=== PATIENT | male | born 1985 | race Caucasian/White ===

== ENCOUNTER 2025-01-25 12:48 | Emergency (ER) | payer BC, SELFPAY ==
[2025-01-25 12:59] VITALS: BP 142/82; PULSE 80; RESP 18; TEMP 36.4; O2SAT 97
--- NOTE | 2025-01-25 13:03 | ED_ITS ---
HPI - Chest Pain General Chief Complaint: Chest Pain Stated Complaint: Right Side Chest Pain Time Seen by Provider: 01/25/25 13:00 Source: patient, family, RN notes reviewed and old records reviewed Mode of arrival: ambulatory Limitations: no limitations History of Present Illness HPI narrative: 39 year old male presents to express care with complaints of right upper chest pain since 1600 yesterday described as tightness rates pain 06/20, states some increased discomfort when moves his right shoulder. Patient reports today pain has continued and he works for [employer] [facility] [employer] and also felt nausea this morning so the survival flight came to the [employer] and did an EKG and stated for him to follow up with his doctor. Patient has history of diabetes with fingerstick done on arrival to clinic with reading 118. Patient reports that he has been in remission from AML for 3 years did have chemotherapy. Patient has pale color, denies feeling short of breath or increased pain with deep breathing. Patient reports had right shoulder surgery last year and was cleared by his orthopedic in November, denies any recent injury to right shoulder. MD complaint: chest pain (right sided chest pain, nausea this morning with pain, no injury) Related Data Home Medications ?Medication ?Instructions ?Recorded ?Confirmed ?Last Taken ?Type allopurinol 300 mg tablet mg 01/25/25 Unknown History buspirone 15 mg tablet mg 01/25/25 Unknown History rosuvastatin 5 mg tablet mg 01/25/25 Unknown History tirzepatide 5 mg/0.5 mL mg subcut 01/25/25 Unknown History subcutaneous pen injector (Mounjaro) Allergies Allergy/AdvReac Type Severity Reaction Status Date / Time Penicillins Allergy Intermediate Unknown Verified 01/25/25 13:10 Sulfa (Sulfonamide Allergy Intermediate rash Verified 01/25/25 13:10 Antibiotics) Review of Systems Review of Systems: CONSTITUTIONAL: Denies fever, chills, or sweats. EYES: Denies visual changes, redness, or discharge. ENT: Denies rhinorrhea, congestion, sore throat, or otalgia. CARDIOVASCULAR: Reports right sided chest pain denies any palpitations, or edema. RESPIRATORY: Denies cough or dyspnea. GASTROINTESTINAL: Denies abdominal pain, positive for nausea this morning with pain, no vomiting, or diarrhea. GENITOURINARY: Denies dysuria or hematuria. SKIN: Denies rash or itching. MUSCULOSKELETAL: Denies back pain, joint pain, or myalgia. NEUROLOGIC: Denies headache, numbness, or weakness. PSYCHIATRIC: Positive for history of anxiety or depression. All systems reviewed & are unremarkable except as noted in HPI and below PMFSH Past Medical History Medical History (Updated 01/25/25 @ 18:38 by Nyla Collazo NP) AML (acute myeloid leukemia) in remission 3 yrs remission did have chemotherapy Hypertension Diabetes Surgical History Surgical History (Updated 01/25/25 @ 17:56 by Nyla Collazo NP) History of arthroscopy of right shoulder Social History Social History (Updated 01/25/25 @ 17:58 by Nyla Collazo NP) Smoking status: Never smoker Alcohol intake: current Alcohol use details: rare Substance use type: does not use Living arrangements: with family Gender identity (if verbalized by the patient): Male Comments At time of signature, agree with nursing past medical, surgical, social and family history. There is no relevant family history pertinent to the presenting complaint Exam Narrative: GENERAL: Well-appearing, well-nourished, color pale and in no present acute distress.appears anxious HEAD: Normocephalic, atraumatic. EYES: PERRLA and EOMI. ENT: Nares clear, no rhinorrhea or epistaxis. Mucous membranes moist. TM;s normal throat pink with no swelling NECK: Supple.no lymphadenopathy CHEST: Clear to auscultation. No respiratory distress. denies any cough or any URI symptoms or any feelings of dyspnea SAO2 97% on room air HEART: Regular rate and rhythm. No murmur heard. Normal peripheral pulses. ABDOMEN: Soft, nontender, nondistended, normal active bowel sounds. EXTREMITIES: Normal range of motion. No edema. SKIN: Warm, dry, no rash. NEURO: No focal deficits. Alert and oriented x3. Course Course Emergency Course: Patient is aware of diagnosis, understands and agrees to treatment plan.? Anticipatory guidance given.? Patient agrees to follow-up as directed and is aware of reasons to seek care at the emergency department. Portions of this record may have been created with voice recognition software Level of Care: Express Care Visit Vital Signs Vital signs: Vital Signs Temperature 36.4 C 01/25/25 12:59 Pulse Rate 80 01/25/25 12:59 Respiratory Rate 18 01/25/25 12:59 Blood Pressure 142/82 H 01/25/25 12:59 Pulse Oximetry 97 01/25/25 12:59 Oxygen Delivery Room Air 01/25/25 12:59 Temperature 36.4 C 01/25/25 12:59 Pulse Rate 80 01/25/25 12:59 Respiratory Rate 18 01/25/25 12:59 Blood Pressure 142/82 H 01/25/25 12:59 Pulse Oximetry 97 01/25/25 12:59 Oxygen Delivery Room Air 01/25/25 12:59 Reviewed Transfer Transfered to: [facility] Transportation: Other (per private car with refuses ambulance transfer AMA paper signed against ambulance transfer) Transfer rationale: Patient has had ongoing right mid upper chest pain since 4 pm yesterday states increased pain with movement of right shoulder, states nausea this morning with pain, no present nausea reported, Patient is diabetic on Mounjaro, has history of AML has been in remission 3 years did take chemotherapy Accepting physician: Dr Gallegos Transfer comments: To [facility] per private car with for further evaluation MDM - Chest Pain MDM Narrative Medical decision making narrative: 1325 Call placed to [facility] ED with condition update, PMH, VS, reviewed with Bill RN with Dr Gallegos accepting patient for transfer. Differential Diagnosis Differential diagnosis: Likely atypical chest pain, costochondritis and chest pain Medical Records Data Attestation: I reviewed the patient's medical records. Lab Data Attestation: I reviewed the patient's lab results. Lab results narrative: glucose 118 Labs: Lab Results 01/25/25 Range/Units 13:04 POC Capillary Glucose 118 H (65-105) mg/dl reviewed ECG Data EKG #1: Attestation: I personally reviewed and interpreted this ECG as follows: ECG completion date: 01/25/25 ECG completion time: 13:06 Prior ECG tracings: not available for review Ischemic changes: other (flipped t waves) Interpretation: sinus rhythm rate 69 bpm, WA 135ms QRS 104ms,QT 398ms EKG Interpretation: sinus rhythm Critical Care Time Critical Care Time Critical Care Time: No Discharge Plan Discharge Clinical Impression: Atypical chest pain Patient Disposition: Acute Care Hospital Condition: Stable Patient Language: Bangladeshi Prescriptions: No Action allopurinol 300 mg tablet buspirone 15 mg tablet rosuvastatin 5 mg tablet Mounjaro 5 mg/0.5 mL pen injector SUBCUT Follow-up/Referrals: UNKNOWN,DOCTOR [Primary Care Provider] Time of Disposition: 13:30 Quality Abbie Coma Scale Eyes: Open Verbal: Oriented and Alert Motor: Follows Commands [place] Coma Total Score: 15
--- NOTE | 2025-01-25 13:05 | ECG_ITS ---
Test Date: 2025-01-25 13:06:40 Measurements Intervals Reese Rate: 69 P: 20 VT: 135 QRS: 21 QRSD: 104 T: 28 QT: 398 QTc: 428 Interpretive Statements SINUS RHYTHM BASELINE ARTIFACT- I, II, III, AVL, AVF NORMAL ECG No previous ECG available for comparison Electronically Signed On 01-25-2025 14:15:48 CDT by Wilmer Carroll D.O.
[2025-01-25] MEDS: ASPIRIN 81 MG CHEWABLE TABLET 324 MG PO (13:36)
--- OUTSIDE RECORDS SUMMARY | 2025-01-25 13:53 | XMS_ITS | Encounter Summary ---
Author Organization [facility] Healthcare Address [address] [place] [address] Care Team Providers Care Cup Machine Operator Name Role Phone Lu Ram NP Primary Care Provider [phone] Reason for Visit * Reason Comments Chest Pain Encounter Details Date Type Department Care Team (Late st Contact Info) Description 01/25/2025 1:53 PM CDT Emergency [facility] Emergency Department [address] [place] [address] Social History Tobacco Use Types Packs/Day Years Used Date Smoking Tobacco: Former Cigarettes 0.3 3.3 Cigars Smokeless Tobacco: Never Alcohol Use Standard Drinks/Week Comments Yes 0 (1 standard drink = 0.6 oz pure alcohol) recovering alcoholic quit Apr 2016 AUDIT-C Answer Date Recorded Q1: How often do you have a drink containing alcohol? Never 08/16/2024 Q2: How many drinks containi ng alcohol do you have on a typical day when you are drinking? Patient does not drink Q3: How often do you have si x or more drinks on one occasion? Never 08/16/2024 PHQ-2 Answer Date Recorded PHQ-2 Total Score (If total score is 3 or more points, staff should administer the PHQ-9) 0 08/10/2024 Personal Safety Answer Date Recorded Have you ever been in or are you currently in a harmful physical or emotional relationship or is someone making you feel afraid or unsafe? Denies 01/11/2024 Sex and Gender Information Value Date Recorded Sex Assigned at Not on file Legal Sex Male 6:25 PM [employer] Gender Identity Not on file Sexual Orientation Not on file documented as of this encounter Last Filed Vital Signs Vital Sign Reading Time Taken Comments Blood Pressure 137/75 01/25/2025 2:05 PM CDT Pulse 75 01/25/2025 2:05 PM CDT Temperature 36.8 C (98.2 F) 01/25/2025 2:05 PM CDT Respiratory Rate 18 01/25/2025 2:05 PM CDT Oxygen Saturation 95% 01/25/2025 2:05 PM CDT Inhaled Oxygen Concentration - - Weight 127 kg (280 lb) 01/25/2025 2:02 PM CDT Height 177.8 cm (5' 10) 01/25/2025 2:02 PM CDT Body Mass Index 40.18 01/25/2025 2:02 PM CDT documented in this encounter ED Notes * Cheryl Doshi RN - 01/25/2025 2:01 PM CDT Pt presents to ER with c/o right sided chest pain. Reports pain is constant and tight. States pain worsens with use of right arm. Denies cardiac hx. documented in this encounter Plan of Treatment Pending Results Name Type Priority Associated Diagnoses Date /Time Comprehensive metabolic panel Lab STAT 01/25/2025 2:12 PM CDT Troponin T high-sensitivity series (baseline, 2hr, 4hr, 6hr) Lab STAT 01/25/2025 2:12 PM CDT XR Chest PA Lateral 2 Views (If patient hemodynamically stable and ambulatory) Imaging ED 2:20 PM CDT Scheduled Orders Name Type Priority Associated Diagnoses Order Schedule Comprehensive metabolic panel Lab STAT STAT for 1 Occurrences starting 01/25/2025 until 01/25/2025 Troponin T high-sensitivity series (baseline, 2hr, 4hr, 6hr) Lab STAT STAT for 1 Occurrences starting 01/25/2025 until 01/25/2025 Oxygen Therapy - Nasal Cannula; 2 L/min Respiratory Care STAT For RT frequen cy use only for continuous procedures with task-based reminders at 8a and 8p until discontinued starting 01/25/2025 XR Chest PA Lateral 2 Views (If patient hemodynamically stable and ambulatory) Imaging ED Once for 1 Occurrences starting 01/25/2025 until 01/25/2025 Troponin T high-sensitivity 2-hour Lab Timed Once for 1 Occurrences starting 01/25/2025 until 01/25/2025 Troponin T high-sensitivity 4-hour Lab Timed Once for 1 Occurrences starting 01/25/2025 until 01/25/2025 Troponin T high-sensitivity 6-hour Lab Timed Once for 1 Occurrences starting 01/25/2025 until 01/25/2025 documented as of this encounter Procedures Procedure Name Priority Date/Time Associated Diagnosis Comments DIFFERENTIAL AUTO STAT 01/25/2025 2:1 2 PM CDT CBC WITH AUTO DIFFERENTIAL STAT 01/25/2025 2:12 PM CDT documented in this encounter Results * Differential, auto (01/25/2025 2:12 PM CDT) Neutrophil abs 5.47 1.50 - 6.50 K/cumm Imm gran abs 0.05 0.00 - 0.10 K/cumm [facility]) Lymphocyte abs 2.01 0.80 - 3.30 K/cumm [facility]) Monocyte abs 0.47 0.20 - 0.80 K/cumm [facility]) Eosinophil abs 0.36 0.00 - 0.50 K/cumm [facility]) Basophil abs 0.04 0.00 - 0.10 K/cumm [facility]) Neutrophil pct 65.1 % [facility] Comment: Interpretive Data Percent cell count reference ranges are not reported, since discordance with absolute values may lead to misinterpretation of CBC data. Current Interpretive Data was last revised on 2017. Imm gran pct 0.6 % [facility] Comment: Interpretive Data Percent cell count reference ranges are not reported, since discordance with absolute values may lead to misinterpretation of CBC data. Current Interpretive Data was last revised on 2017. Lymphocyte pct 23.9 % [facility] Comment: Interpretive Data Percent cell count reference ranges are not reported, since discordance with absolute values may lead to misinterpretation of CBC data. Current Interpretive Data was last revised on 2017. Monocyte pct 5.6 % [facility]) Comment: Interpretive Data Percent cell count reference ranges are not reported, since discordance with absolute values may lead to misinterpretation of CBC data. Current Interpretive Data was last revised on 2017. Eosinophil pct 4.3 % [facility] Comment: Interpretive Data Percent cell count reference ranges are not reported, since discordance with absolute values may lead to misinterpretation of CBC data. Current Interpretive Data was last revised on 2017. Basophil pct 0.5 % [facility] Comment: Interpretive Data Percent cell count reference ranges are not reported, since discordance with absolute values may lead to misinterpretation of CBC data. Current Interpretive Data was last revised on 2017. Blood 01/25/2025 2:12 PM CDT 01/25/2025 2:15 PM CDT us Toro Gallegos MD LAB BLOOD ORDERABLES Final R esult [facility] ([place]) 1 [facility] Department [place] [address] * (ABNORMAL) CBC with auto differential (01/25/2025 2:12 PM CDT) WBC 8.40 3.80 - 9.90 K/cumm Hgb 14.3 13.0 - 17.5 g/dL [facility]) Hct 39.2 38.9 - 50.3 % [facility] ([place]) Plt 149(L) 150 - 400 K/cumm [facility]) MPV 9.6 9.1 - 12.3 fL [facility]) RBC 4.48 4.30 - 5.80 M/cumm [facility]) MCV 87.5 81.3 - 96.4 fL [facility] MCH 31.9 27.1 - 33.3 pg [facility] MCHC 36.5(H) 32.3 - 35.7 g/dL [facility] RDW CV 12.4 11.1 - 14.9 % [facility] RDW SD 39.4 35.7 - 48.1 fL [facility] NRBC abs 0.00 0.00 - 0.01 K/cumm [facility] ([place]) Blood Venous blood specimen / Unknown 01/25/2025 2:12 PM CDT 01/25/2025 2:15 PM CDT Toro Galleogs MD LAB BLOOD ORDERABLES Final R esult [facility] ([place]) 1 [facility] Department [place] [address] documented in this encounter Visit Diagnoses Not on filedocumented in this encounter Orders Medications Ordered That Brooks ht Not Have Been Administered Count Last Ordered Date First Ordered Date aspirin chewable tablet 324 mg 1 01/25/2025 EKG Orders Without Results Count Last Ordered D ate First Ordered Date ECG 12-LEAD 1 01/25/2025 Nursing Count Last Ordered Date First Orde red Date CARDIO RESPIRATORY MONITORING 1 01/25/2025 CONTINUOUS PULSE OXIMETRY 1 01/25/2025 MISCELLANEOUS NURSING CARE ORDER (SPECIFY) 1 01/25/2025 IV Count Last Ordered Date First Orde red Date SALINE LOCK IV 1 01/25/2025 documented in this encounter Care Teams Cup Machine Operator Relationship Specialty Start Date End Date Lu Ram NP PCP - General Family Medicine 07/21/23 documented as of this encounter
--- OUTSIDE RECORDS SUMMARY | 2025-01-25 14:33 | XMS_ITS | Clinical Summary ---
Author Organization [facility] [address] [place] [address] [place] [id number] Care Team Providers Care Charter Coach Driver Name Role Phone Lu Ram NP Primary Care Provider [phone] Allergies Active Allergy Reactions Criticality Noted Date Comments Penicillins Unknown Sulfa (Sulfonamide Antibiotics) Other (See comments) Low 02/06/2011 Since a child Medications busPIRone (BUSPAR) 15 mg tabletIndications:S ituational anxiety TAKE 1 TABLET(15 MG) BY MOUTH DAILY 90 tablet [address] (VOLTAREN) 75 mg EC tablet 5 Active rosuvastatin (CRESTOR) 5 mg tabletIndications:M ixed hyperlipidemia TAKE 1 TABLET(5 MG) BY MOUTH DAILY 90 tablet 5 Active tirzepatide (Mounjaro) 10 mg/0.5 mL pen injector injectionIndication s:Type 2 diabetes mellitus without complication, without long-term current use of insulin (HCC) Inject 0.5 mL (10 mg total) under the skin every 7 days 2 mL 1 5 Active allopurinoL (ZYLOPRIM) 300 mg tablet Take 1 tablet (300 mg total) by mouth daily 5 Active Active Problems Problem Noted Date Diagnosed Date Right shoulder pain 12/02/2024 Pre-op examination 01/05/2024 Impingement syndrome of right shoulder 4 Arthritis of right acromioclavicular joint 12/23 Biceps tendonitis on right 12/24/2023 Mixed hyperlipidemia 08/24/2023 Situational anxiety 08/24/2023 Type 2 diabetes mellitus wit hout complication, without long-term current use of insulin 08/09/2021 Hypokalemia 08/09/2021 Pancytopenia 08/09/2021 Avulsion fracture of navicul ar bone of foot, right, closed, initial encounter 05/19/2021 Right foot sprain, initial encounter 05/19/2021 Acute myeloid leukemia in remission 03/11/2021 Complex regional pain syndrome 08/20/2015 Overview (07/17/2016): Complex regional pain syndrome Chronic sinusitis 08/20/2015 Overview (07/17/2016): Chronic sinusitis Resolved Problems Problem Noted Date Diagnosed Date Resolved Date Morbid obesity with BMI of 40.0-44.9, adult 07/23/2023 01/05/2024 Generalized anxiety disorder 07/23/2023 08/24/2023 Adiposity 08/20/2015 07/23/2023 Overview (07/16/2016): Obesity Encounters Date Type Department Care Team Description 01/25/2025 1:53 PM CDT Emergency [facility] Emergency Department [address] [place] [address] 12/13/2024 Telephone [facility] Family [facility] [address] [place] [address] Lu Ram NP 12/02/2024 8:45 AM CDT Office Visit [facility] Orthopedic and Sports Medicine [address] [place] [phone] Edmundo Ji MD Right shoulder pain, unspecified chronicity (Primary Dx) 12/02/2024 Orders Only [facility] Orthopedic [facility] Sports Medicine [address] [place] [phone] Edmundo Ji MD from Last 3 Months Immunizations Immunization Administration Dates Next Due H1N1 Inj 03/28/2009 Hep A / Hep B 03/02/2006, 6,10/26/2005,09/22 IPV 09/22/2005 Influenza LAIV (Nasal) 01/12/2024(Deferr ed: Patient Refused),01/27/2006 Influenza, Quadrivalent, Spl it, Intramuscular 01/12/2009,08/07/2008 Influenza, Unspecified 01/11/2023(Deferr ed: Patient Refused),07/09/2007 MMR 09/22/2005 Meningococcal Polysaccharide (Menomune) 09/22/2005 PPD TEST 03/23/2009, 9,08/07/2008,03/02 Pfizer SARS-CoV-2 Monovalent Vaccination (12+ Yrs) PURPLE 07/23/2020,07/02/2020 Td, adsorbed 09/22/2005 Tdap 08/19/2016,04/13/2005 Typhoid H-P SQ/ID 10/27/2005 Typhoid Inactivated 10/27/2005 Yellow Fever 10/27/2005 Surgical History Surgery Date Site/Laterality Comments SINUS SURGERY sinus surgery PORT PLACEMENT CHEST >5 YEARS 04/04/2021 N/A PORT REMOVAL VASECTOMY Medical History Medical History Date Comments Hx Other Medical 04/2008 regional sympat rotic pain disorder; Comments: CLS 08/20/2015 - Myeloid leukemia in remission ma y 2021 Sleep apnea PONV (postoperative nausea a nd vomiting) HLD (hyperlipidemia) Chronic sinusitis Type 2 diabetes mellitus Depression Anxiety Arthritis Family History Medical History Relation Name Comments Cancer Father's Brother Abdulkadir Arthritis Mother Zaina Arthritis; Diabetes Mother Zaina Diabetes mellit us; Hypertension Mother Zaina Hypertension; Obesity Mother Zaina Cancer Paternal Grandfather Toro Cancer Paternal Grandmother Azra Relation Name Status Comments Father's Brother Abdulkadir Mother Zaina (Age 54) Paternal Grandfather Toro Paternal Grandmother Azra Social History Tobacco Use Types Packs/Day Years Used Date Smoking Tobacco: Former Cigarettes 0.3 3.3 Cigars Smokeless Tobacco: Never Tobacco Cessation:Counseling Given: Not Answered Alcohol Use Standard Drinks/Week Comments Yes 0 [...] on file Legal Sex Male 6:25 PM [employer]PLIANCE [employer]OC[employer] Gender Identity Not on file Sexual Orientation Not on file Obstetrics History Last Filed Vital Signs Vital Sign Reading [...] Mass Index 40.18 01/25/2025 2:02 PM CDT Plan of Treatment Health Maintenance Due Date Last Done Comments Foot Exam 1984 Pneumococcal vaccine <65 (1 of 2 - PCV) 01/30/2003 Zoster Vaccine (1 of 2) 01/30/2003 Varicella Vaccines (1 of 2 - 13+ 2-dose series) 02/24/2006 HPV Vaccines (1 - 3-dose SCD M series) 01/30/2011 Dilated Eye Exam 10/09/2024 10/10/2023 Covid-19 Vaccine (4 - 2024-2 6 season) 2024 05/14/2022, 07/23/2020, 07/02/2020 Influenza Vaccine (#1) 2024 9, 08/07/2008, 07/09/2007, Additional history exists Hemoglobin A1C 02/13/2025 08/13/2024, 11/0 08/2023, 10/24/2023, Additional history exists Depression Screening 08/10/2025 08/10/2024, 07/23/19 Albumin Creatinine Ratio, Urine 08/13/2025 , 08/01/2023 Lipid Panel 08/13/2025 08/13/2024, 07/1 06/2023, 08/01/2023 eGFR 08/13/2025 08/13/2024, 11/0 08/2023, 10/24/2023, Additional history exists Regular Well Visit/Exam 18-64 08/17/2025 08/17/2024 DTaP/Tdap/Td Vaccine (4 - Td or Tdap) 08/19/2026 08/19/2016, 09/22/2005, 04/13/2005 Hepatitis B Screening Completed 03/02/2006 , 10/27/2005, 10/26/2005, Additional history exists Hepatitis C Screening Completed 08/29/2023, 024 Procedures Procedure Name Priority Date/Time Associated Diagnosis Comments DIFFERENTIAL AUTO STAT 01/25/2025 2:1 2 PM CDT CBC WITH AUTO DIFFERENTIAL STAT 01/25/2025 2:12 PM CDT EGFR Routine 08/13/2024 7:18 AM CDT Morbid obesity with BMI of 40.0-44.9, adult (HCC) Type 2 diabetes mellitus without complication, without long-term current use of insulin (HCC) Mixed hyperlipidemia Annual physical exam HEMOGLOBIN A1C Routine 08/13/2024 7:18 AM CDT Type 2 diabetes mellitus without complication, without long-term current use of insulin (HCC) LIPID PANEL Routine 08/13/2024 7:18 AM CDT Mixed hyperlipidemia Annual physical exam ALBUMIN CREATININE RATIO, URINE Routine 08/13/2024 7:18 AM CDT Type 2 diabetes mellitus without complication, without long-term current use of insulin (HCC) DIABETIC EYE EXAM Routine 10/10/2023 HEPATITIS PANEL, ACUTE Routine 08/29/2023 7:28 AM CDT Elevated LFTs from Last 3 Months or Most Recently Relevant to Health Maintenance Results * Differential, auto (01/25/2025 2:12 PM [...] PM CDT 01/25/2025 2:15 PM CDT Toro Gallegos MD LAB BLOOD ORDERABLES Final R esult [facility] ([facility]) [facility] [address] * (ABNORMAL) CBC with auto differential (01/25/2025 [...] RDW SD 39.4 35.7 - 48.1 fL [facility] ([facility]) NRBC abs 0.00 0.00 - 0.01 K/cumm [facility] ([facility]) Blood Venous blood specimen / Unknown 01/25/2025 2:12 PM CDT 01/25/2025 2:15 PM CDT Toro Gallegos MD LAB BLOOD ORDERABLES Final R esult [facility] ([facility]) 1 [facility] [address] * eGFR (08/13/2024 7:18 AM CDT) eGFR >90 >=60 mL/min/1. 73 m2 Comment: Interpretive Data Reference Interval Normal >/= 90 mL/min/1.73m2 Mildly decreased* 60 - 89 mL/min/1.73m2 Mildly to moderately decreased 45 - 59 mL/min/1.73m2 Moderately to severely decreased 30 - 44 mL/min/1.73m2 Severely decreased 15 - 29 mL/min/1.73m2 Kidney Failure < 15 mL/min/1.73m2 *Relative to young adult level Estimated glomerular filtration rate is determined by the 2020 CKD-EPI equation recommended by the National Kidney Foundation (A Unifying Approach to GFR Estimation: Recommendations of the NKF-ASK Task Force on Reassessing the Inclusion of Race in Diagnosing Kidney Disease, JASN 2020). The CKD-EPI equation should not be used for patients with unstable renal function and has not been validated in children and those over 70. Current interpretive data was last reviewed 2021. Blood 08/13/2024 7:18 AM CDT 08/13/2024 7:29 AM CDT us Lu Ram NP LAB BLOOD ORDERABLES Final Res ult [facility] 1 [facility] [place] [address] * Albumin Creatinine Ratio, Urine (08/13/2024 7:18 AM CDT) Albumin Ur <12.0 mg/L Comment: Interpretive Data No reference range established. Current interpretive data was last revised 2018. Testing performed by: [facility], [address] [place] [address], [place]., [address] Creatinine Ur 149.0 mg/dL [facility] ([place]) Comment: Interpretive Data No reference range established. Current interpretive data was last revised 2018. Testing performed by: [facility], [address] [place] [address]., [address] Albumin Creatinine Ratio, Ur <8 1 - 29 mg/g [facility] ([place]) Comment:Testing performed by : [facility], [address] [place] [address], [place]., [address] Urine 08/13/2024 7:18 AM CDT 08/13/2024 1:05 PM CDT LuDBi Servicesson CEMENT BREAKER LAB URINE ORDERABLES Final Res ult Performing Organization Address [facility] de Phone Number [facility] ([place]) 1 [facility] [place] [address] * Hemoglobin A1c (08/13/2024 7:18 AM CDT) Hgb A1C 5.0 4.0 - 5.6 % Estimated Average Glucose 97 mg/dL [facility] ([place]) Comment: The ADA recommends reporting an estimated Average Glucose (eAG) with all Hemoglobin A1c results using the equation derived from a study of 507 normal and diabetic adults. Minority populations were underrepresented and children were not included. (Diabetes Care 31:9336-7657, 2008). The eAG is not equivalent to a fasting glucose. Blood 08/13/2024 7:18 AM CDT 08/13/2024 7:29 AM CDT Lu Yo CEMENT BREAKER LAB BLOOD ORDERABLES Final Res ult Performing Organization Address [facility] de Phone Number [facility] [address] [place] [id number] * (ABNORMAL) Lipid panel (08/13/2024 7:18 AM CDT) Cholesterol 235(H) 30 - 199 mg/dL Comment: Interpretive Data Ages < or = 19 years Acceptable: <170 mg/dL Borderline high: 170-199 mg/dL High: >or= 200 mg/dL Ages > or = 20 years Desirable: <200 mg/dL Borderline high: 200-239 mg/dL High: >or= 240 mg/dL Literature References: 1. Expert Panel on Integrated Guidelines for Cardiovascular Health and Risk Reduction in Children and Adolescents. Pediatrics 2011;128:S213 2. NCEP Expert Panel. Circulation 2004;110:227 Current Interpretive Data was last revised on 2017. Triglycerides 90 <=149 mg/dL [facility]) Comment: Interpretive Data Ages < or = 9 years Acceptable: <75 mg/dL Borderline high: 75-99 mg/dL High: >or= 100 mg/dL Ages 10 to 20 years Acceptable: <90 mg/dL Borderline high: 90-129 mg/dL High: >or= 130 mg/dL Ages > or = 20 years Desirable: <150 mg/dL Borderline high: 150-199 mg/dL High: 200-499 mg/dL Very high: >or= 499 mg/dL Literature References: 1. Expert Panel on Integrated Guidelines for Cardiovascular Health and Risk Reduction in Children and Adolescents. Pediatrics 2011;128:S213 2. NCEP Expert Panel. Circulation 2004;110:227 Current Interpretive Data was last revised on 2017. HDL 41 >=40 mg/dL [facility] ([place]) Comment: Interpretive Data Ages < or = 19 years Acceptable: >45 mg/dL Borderline low: 40-45 mg/dL Low: <40 mg/dL Ages > or = 20 years Desirable: >or= 60 mg/dL Low: <40 mg/dL Literature References: 1. Expert Panel on Integrated Guidelines for Cardiovascular Health and Risk Reduction in Children and Adolescents. Pediatrics 2011;128:S213 2. NCEP Expert Panel. Circulation 2004;110:227 Current Interpretive Data was last revised on 2017. LDL, calculated 178(H) <=129 mg/dL [facility] GALAVIZ) Comment: Interpretive Data Ages < or = 19 years Acceptable: <110 mg/dL Borderline high: 110-129 mg/dL High: >or= 130 mg/dL Ages > or = 20 years Optimal: <100 mg/dL Near optimal: 100-129 mg/dL Borderline high: 130-159 mg/dL High: >160 mg/dL Calculated using the Walter LDL-C estimating equation. This equation was implemented on 2023. Prior to this date LDL-C was estimated using the Friedewald equation. Literature References: 1. Expert Panel on Integrated Guidelines for Cardiovascular Health and Risk Reduction in Children and Adolescents. Pediatrics 2011;128:S213 2. NCEP Expert Panel. Circulation 2004;110:227 3. Jose Angel M et al. MINAL Cardiol. 2020 August 11;5(5):540-548. doi: 10.1001/[email or web address].2020.0013 Current Interpretive Data was last revised on 2023. Non-HDL Cholesterol 194 mg/dL [facility] ([place]) Comment: Interpretive Data Ages < or = 19 years Acceptable: <120 mg/dL Borderline high: 120-144 mg/dL High: >145 mg/dL Ages > or = 20 years When triglycerides are >200 mg/dL, Non-HDL cholesterol is a secondary target of therapy with treatment goals that are 30 mg/dL greater than the LDL cholesterol target. Literature References: 1. Expert Panel on Integrated Guidelines for Cardiovascular Health and Risk Reduction in Children and Adolescents. Pediatrics 2011;128:S213 2. NCEP Expert Panel. Circulation 2004;110:227 Current Interpretive Data was last revised on 2017. Chol/HDL ratio 6 MELANE R [facility] ([facility]Y) Blood 08/13/2024 7:18 AM CDT 08/13/2024 7:29 AM CDT Lu Ram NP LAB BLOOD ORDERABLES Final Res ult [facility] ([place]) 1 [facility] Department of Laboratories [place], [place] [id number] * Diabetic Eye Exam (10/10/2023) Historical Provider HEALTH MAINTENANCE Final Result * Hepatitis panel, acute Blood (08/29/2023 7:28 AM CDT) Hep A IgM Nonreactive Nonreactive Comment: Interpretive Data: If Hep A IgM Ab is reported as Equivocal, a new sample should be drawn in two weeks for testing. Current interpretive data was last revised on 19. Testing performed by: [facility], [address] [place] [address], [place]., [address] Hep B core IgM Nonreactive Nonreactive Tu [facility] ([facility]Y) Comment: Interpretive Data If HepB Core IgM Ab is reported as Equivocal, a new sample should be drawn in two weeks for testing. Current interpretive data was last revised on 19. Testing performed by: [facility], [address] [place] [address]., [address] Hep C Ab Nonreactive Nonreactive [facility] ([place]) Comment: Interpretive Data Nonreactive: Antibodies to HCV not detected. Does NOT exclude the possibility of recent exposure to HCV. Equivocal: Equivocal for HCV antibodies. Supplemental molecular testing will be automatically performed to determine infection status in accordance with current CDC screening recommendations. Reactive: Positive for HCV antibodies. This may represent current or past HCV infection. Supplemental molecular testing will be automatically performed to determine current infection status in accordance with current CDC screening recommendations. Interpretive data was last revised on 2019. Testing performed by: [facility], [address] [place] [address]., [address] HepBsAg Nonreactive Nonreactive [facility] ([place]) Comment:Testing performed by : [address] [address] Blood 08/29/2023 7:28 AM CDT 08/29/2023 12:05 PM CDT us Lu Ram NP LAB MICROBIOLOGY - GENERAL ORD ERABLES Final Result [facility] ([place]) 1 [facility] Department [place] [address] from Last 3 Months or Most Recently Relevant to Health Maintenance Insurance [facility] CHOICE PLUS [facility] HMO/PPO Address: [address] [address] [place] [address] [facility] OPEN ACCESS [facility] [place] [facility] [place] Care Teams Charter Coach Driver Relationship Specialty Start Date End Date Lu Ram NP PCP - General Family Medicine 07/21/23
--- OUTSIDE RECORDS SUMMARY | 2025-01-25 14:41 | XMS_ITS ---
Author Organization [facility] Address [address] [facility] [place] [address] Care Team Providers Care Materials Engineer Name Role Phone Neil Guy MD Unavailable [phone] Sha Aguirre MD Unavailable Pearl Tillman FOLDING MACHINE TENDER-DEVOPS ARCHITECT Unavailable [phone] Lu Ram FOLDING MACHINE TENDER-RAIL BONDER Primary Care Provider Active Problems Problem Noted Date Diagnosed Date Septic shock 08/09/2021 DMII (diabetes mellitus, type 2) 08/09/2021 Pancytopenia 08/09/2021 Hypokalemia 08/09/2021 Bacteremia 08/09/2021 Other specified anemias 08/09/2021 headache, unclear etiology 08/09/2021 Dental abscess 05/05/2021 Acute myeloid leukemia s/p induction 04/11/2021 Acute myeloid leukemia not having achieved remis tramaine 03/11/2021 Chronic sinusitis Current Treatment and Therapy Plans IP AML CONSOLIDATION - AGE <60 (HIGH DOSE CYTARABINE)(RANGEL HIDAC)* Plan Start Date:03/25/2021 Plan Provider:Faina Oreilly MD Linked Problems Acute myeloid leukemia not h aving achieved remission (HCC) Treatment Medications cytarabine (Cytosar)cytarabine (Cytosar) Infusio n Past Treatment and Therapy Plans ONCOLOGY TREATMENT Plan Name Start Date Discontinue Date Treatment Medications Discontinue Reason Plan Provider Cycles IP AML INDUCTION (IDARUBICIN CYTARABINE) (7+3) 03/14/20 21 04/17/2021 cytarabine (Cytosar) InfusionIDArubicin (Idamycin)rasburicas e (Elitek) custom in 50 mL bolus Therapy Complete hSa Aguirre MD 1 of 1 cycle completed Lifetime Dose Tracking * Chemical Lifetime Dose Automatic Entry Manual Entr y Idarubicin 35.904 mg/m2 (90 mg) 35.904 mg/m2 (90 mg) 0 mg/m2 (0 mg) Dose Length Product 5,928.3 mGy-cm 5,928.3 mGy-cm 0 mG y-cm Resolved Problems Problem Noted Date Diagnosed Date Resolved Date Neutropenic fever 08/08/2021 08/23/2021
--- OUTSIDE RECORDS SUMMARY | 2025-01-25 14:41 | XMS_ITS | Clinical Summary ---
Author Organization [facility] Address [address] [place] [address] Care Team Providers Care Clay Shop Supervisor Name Role Phone Neil Guy MD Unavailable [phone] Sha Aguirre MD Unavailable [phone] Pearl Tillman ELECTRICAL TECH-IOS SOFTWARE ENGINEER Unavailable [phone] Lu Ram ELECTRICAL TECH-BUILDING ENGINEER Primary Care Provider Source Comments [facility],non-owned Affiliates and Associated Physician Practices is amultiple site organization consisting of ambulatory clinics and hospital sitesin [place], [place], [place] and [place]. This disclosure is being madepursuant to the Care Everywhere program and may not contain all information available regarding this patient. Last updated 18.[facility] Allergies Active Allergy Reactions Criticality Noted Date Comments Penicillins 12/11/2016 Sulfa Drugs 12/11/2016 Medications * Be aware that medications may not be up to date on this document. Alwaysverify current medications with the patient. sertraline (ZOLOFT) 50 MG tabletIndicatio ns:Major Depressive Disorder Take 1 (one) tablet by mouth once daily Reasons: Major Depressive Disorder 30 tablet 3 2 Active Additional Information Patient not taking.Reported on 03/31/2023 glipiZIDE (Glucotrol) 10 MG tablet Take 1 (one) tablet by mouth 2 times daily, before breakfast and supper Active metFORMIN (Glucophage) 500 MG tablet Take 1 (one) tablet by mouth 2 times daily with morning and evening meal Active Active Problems Problem Noted Date Diagnosed Date Septic shock 08/09/2021 DMII (diabetes mellitus, type 2) 08/09/2021 Pancytopenia 08/09/2021 Hypokalemia 08/09/2021 Bacteremia 08/09/2021 Other specified anemias 08/09/2021 headache, unclear etiology 08/09/2021 Dental abscess 05/05/2021 Acute myeloid leukemia s/p induction 04/11/2021 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 (A FLURIA, FLUZONE QUADRIVALENT; 6MO+) (IIV4) 01/12/2009,08/07/2008 MENINGOCOCAL MENINGITIS 09/22/2005 MMR 09/22/2005 POLIO IPV 09/22/2005 TDAP (7yrs+) 08/19/2016,04/13/2005 TYPHOID IM 10/27/2005 TYPHOID VACCINE H-P 10/27/2005 Td (Adult), 2 Lf Tetanus Tox oid, Adsorbed, Pf 09/22/2005 YELLOW FEVER 10/27/2005 Family History Medical History Relation Name Comments Cancer - Lung Father tobacco user Diabetes - Type 2 Mother Hypertension Mother Cancer - Pancreatic Paternal Grandfather Cancer - Pancreatic Paternal Grandmother Cancer - Pancreatic Paternal Uncle Relation Name Status Comments Father Mother Paternal Grandfather Paternal Grandmother Paternal Uncle Other Social History Tobacco Use Types Packs/Day Years Used Date Smoking Tobacco: Former Cigarettes 2 - 2004 Smokeless Tobacco: Never Tobacco Cessation:Counseling Given: Not Answered Alcohol Use Standard Drinks/Week Comments Not Currently 0 (1 standard drink = 0.6 oz pure alcohol) Prior social use until AML diagnosis in 2020 AUDIT-C Answer Date Recorded Q1: How often do you have a drink containing alcohol? Patient declined 08/08/2021 Q2: How many drinks containi ng alcohol do you have on a typical day when you are drinking? Patient does not drink Q3: How often do you have si x or more drinks on one occasion? Patient declined 08/08/2021 Sex and Gender Information Value Date Recorded Sex Assigned at Not on file Legal Sex Male 9:03 AM CDT Gender Identity Not on file Sexual Orientation Not on file Last Filed Vital Signs Vital Sign Reading Time Taken Comments Blood Pressure 131/86 07/28/2023 3:00 PM CDT Pulse 91 07/28/2023 3:00 PM CDT Temperature 37 C (98.6 F) 07/28/2023 3:00 PM CDT Respiratory Rate 20 07/28/2023 3:00 PM CDT Oxygen Saturation 97% 07/28/2023 3:00 PM CDT Inhaled Oxygen Concentration - - Weight 141.5 kg (312 lb) 07/28/2023 3:00 PM CDT Height 177.8 cm (5' 10) 03/31/2023 2:45 PM ADJUNCT PHYSICAL EDUCATION INSTRUCTOR Body Mass Index 44.77 03/31/2023 2:45 PM ADJUNCT PHYSICAL EDUCATION INSTRUCTOR Plan of Treatment Health Maintenance Due Date Last Done Comments PNEUMOCOCCAL VACCINE (1 of 2 - PCV) 01/30/2003 ZOSTER VACCINE (1 of 2) 01/30/2003 HPV VACCINE (1 - 3-dose SCDM series) 01/30/2011 DIABETES RETINOPATHY SCREENING 08/09/2021 DIABETES-FOOT EXAM WITH MONOFILAMENT 08/09/2021 DIABETES-HGB A1C 09/11/2021 03/13/2021 DIABETES-STATIN 2024 DEPRESSION SCREENING 04/13/2024 DIABETES - URINE PROTEIN SCREENING 04/13/2024 DIABETES-SERUM CREATININE 07/27/20242023, 03/31/2023, 11/12/2022, Additional history exists COVID-19 VACCINE (2024- season) 2024 05/14/2022, 07/23/2020, 07/02/2020 INFLUENZA VACCINE (#1) 2024 9, 08/07/2008, 07/09/2007 DTAP/TDAP/TD VACCINES (4 - Td or Tdap) 08/19/2026 08/19/2016, 09/22/2005, 04/13/2005 MENINGOCOCCAL GROUPS A/C/Y/W VACCINE Aged Out 09/22/2005 No longer eligible based on patient's age to complete this topic HEPATITIS B VACCINE Completed 03/02/2006, 10/27/2005, 10/26/2005, Additional history exists HEPATITIS C SCREENING Completed 03/12/2021 HIV SCREENING Completed 03/12/2021 HIB VACCINE Aged Out No longer eligi ble based on patient's age to complete this topic MENINGOCOCCAL (Group B) VACCINE SHARED DECISION-MAKING Aged Out No longer eligible based on patient's age to complete this topic Medical Devices Implanted Type Area Staple Fiber Washer Device Identifier Shelf Expiration Date Model / Serial / Lot Tray Cath 12fr 23cm Hkmn Trifusion 3 Lum Implanted:Qty: 1 on 03/13/2021 by Thomas Trejo MD at [facility] Right: Chest [employer] 09/10/2022 [id number] / / [id number] Procedures Procedure Name Priority Date/Time Associated Diagnosis Comments COMPREHENSIVE METABOLIC PANEL YIFAN 07/28/2023 2:49 PM CDT Acute myeloid leukemia not having achieved remission HEMOGLOBIN A1C Routine 03/13/2021 5:41 PM ADJUNCT PHYSICAL EDUCATION INSTRUCTOR HEPATITIS C AB SCREEN RFLX NAAT QUANT Timed 03/12/2021 11:12 PM ADJUNCT PHYSICAL EDUCATION INSTRUCTOR HIV-1 HIV-2 ANTIBODY + HIV P24 AG PANEL STAT 03/12/2021 11:12 PM ADJUNCT PHYSICAL EDUCATION INSTRUCTOR from Last 3 Months or Most Recently Relevant to Health Maintenance Results * (ABNORMAL) COMPREHENSIVE METABOLIC PANEL (07/28/2023 2:49 PM CDT) BUN 14 7 - 26 mg/dL 07/28/2023 3:32 PM CDT [facility] Creatinine 0.86 0.71 - 1.16 mg/dL 07/28/2023 3:32 PM CDT [facility] Sodium 134(L) 136 - 145 mmol/L 07/28/2023 3:32 PM CDT [facility] Potassium 4.0 3.5 - 4.5 mmol/L 07/28/2023 3:32 PM [facility] Chloride 102 98 - 107 mmol/L 07/28/2023 3:32 PM [facility] CO2 21(L) 22 - 29 mmol/L 07/28/2023 3:32 PM [facility] Glucose 354(H) 70 - 115 mg/dL 07/28/2023 3:32 PM [facility] Calcium 9.6 8.4 - 10.2 mg/dL 07/28/2023 3:32 PM [facility] Protein Total 7.3 6.0 - 8.3 g/dL 07/28/2023 3:32 PM [facility] Albumin 4.0 3.4 - 5.0 g/dL 07/28/2023 3:32 PM [facility] Bilirubin Total 0.6 0.2 - 1.2 mg/dL 07/28/2023 3:32 PM [facility] Alkaline Phosphatase 92 40 - 150 U/L 07/28/2023 3:32 PM [facility] ALT 89(H) 5 - 55 U/L 07/28/2023 3:32 PM [facility] AST 42(H) 5 - 34 U/L 07/28/2023 3:32 PM [facility] Anion Gap 11 6 - 16 07/28/2023 3:32 PM [facility] BUN/Creatinine Ratio 16 7 - 23 07/28/2023 3:32 PM [facility] Osmolality Calculated 293 275 - 295 mOsm/kg 07/28/2023 3:32 PM [facility] Albumin/Globulin Ratio 1.2 1.1 - 2.3 07/28/2023 3:32 PM [facility] eGFR by CKD-EPI >90 >=90 mL/min/1.7 3 m2 07/28/2023 3:32 PM [facility] Blood BLOOD SPECIMEN / Unknown Lab Venipuncture / Unknown 07/28/2023 2:49 PM CDT 07/28/2023 3:02 PM [facility]ir[facility] MD LAB - CHEMISTRY ORDERABLES F inal Result Performing Organization Address City/[facility]/ZIP Co de Phone Number [facility] [address] [place] [address], [facility] [phone] * (ABNORMAL) HEMOGLOBIN A1C (03/13/2021 5:41 PM ADJUNCT PHYSICAL EDUCATION INSTRUCTOR) Hemoglobin A1c 7.3(H) 4.4 - 6.3 % 03/14/2021 11:39 AM ADJUNCT PHYSICAL EDUCATION INSTRUCTOR [facility] Estimated Average Glucose 163 mg/dL 03/14/2021 11:39 AM [facility] Comment: HbA1c Interpretation: Treatment target values recommended by ADA and other clinical organizations should be used to evaluate metabolic control in patients. Treatment Target Values: Normal : < 5.7% Pre-diabetes: 5.7-6.4% Diabetes: Equal to or greater than 6.5% Reference: [place] Diabetes Association Standards of Care in Diabetes -2014 In patients 70 years and older consider HbA1c target range of 7.0-7.5% Reference: Diabetes Mellitus in Older People: Position Statement on behalf of the International Association of Gerontology and Geriatrics (IAGG), the Diabetes Working Alliance Party for Older People (EDWPOP), and the International Task Force of Experts in Diabetes. Nick Knott, et al. J [place] [employer] Association. 2012 Test results diagnostic of diabetes should be repeated for confirmation. The Sebia Capillary 2 assay for the measurement of HbA1c is a National Glycohemoglobin Standardization Program (NGSP)certified method. Blood BLOOD SPECIMEN / Unknown Venipuncture / Unknown 03/13/2021 5:41 PM ADJUNCT PHYSICAL EDUCATION INSTRUCTOR 03/13/2021 5:51 PM ADJUNCT PHYSICAL EDUCATION INSTRUCTOR [facility] D[facility]ir[facility] MD LAB - CHEMISTRY ORDERABLES F inal Result Performing Organization Address [facility]/ZIP Co de Phone Number [facility] [address] [place] [address], [facility] [phone] * HEPATITIS C AB SCREEN RFLX NAAT QUANT (03/12/2021 11:12 PM ADJUNCT PHYSICAL EDUCATION INSTRUCTOR) Hepatitis C Antibody Non-react walter Non-reac tive 03/13/2021 12:27 AM ADJUNCT PHYSICAL EDUCATION INSTRUCTOR [facility] Comment:Hepatitis C Antibody screen indicates no serologic evidence of past or current infection with Hepatitis C Virus. Patients with unexplained liver disease who are immunocompromised or suspected of having acute Hepatitis C infection may benefit from Nucleic Acid Test (NEY) for Hepatitis C Viral RNA to confirm Hepatitis C status. Blood BLOOD SPECIMEN / Unknown Venipuncture / Unknown 03/12/2021 11:12 PM ADJUNCT PHYSICAL EDUCATION INSTRUCTOR 03/12/2021 11:21 PM ADJUNCT PHYSICAL EDUCATION INSTRUCTOR [facility] Dangelo Aguirre MD LAB - CHEMISTRY ORDERABLES F inal Result [address] [address], [place] [phone] * HIV-1 HIV-2 ANTIBODY + HIV P24 AG PANEL (03/12/2021 11:12 PM ADJUNCT PHYSICAL EDUCATION INSTRUCTOR) HIV Antigen/Antibod y 1 & 2 Non-reacti ve Non-react walter 03/13/2021 12:28 AM ADJUNCT PHYSICAL EDUCATION INSTRUCTOR [facility] Comment:No Laboratory eviden ce of HIV infection. Blood BLOOD SPECIMEN / Unknown Venipuncture / Unknown 03/12/2021 11:12 PM ADJUNCT PHYSICAL EDUCATION INSTRUCTOR 03/12/2021 11:21 PM ADJUNCT PHYSICAL EDUCATION INSTRUCTOR [facility] LAB - CHEMISTRY ORDERABLES F inal Result Performing Organization Address [facility]/ZIP Co de Phone Number [address] [address], [place] [phone] from Last 3 Months or Most Recently Relevant to Health Maintenance Insurance [facility] Advance Directives * Full Code (Latest Code Status on File) Date Activated Date Inactivated Comments 08/08/2021 11:40 AM 08/14/2021 6:36 PM * Full Code Date Activated Date Inactivated Comments 07/23/2021 3:13 PM 07/28/2021 4:50 PM * Full Code Date Activated Date Inactivated Comments 06/25/2021 12:21 PM 06/30/2021 11:43 AM * Full Code Date Activated Date Inactivated Comments 05/21/2021 9:01 PM 05/27/2021 4:40 PM * Full Code Date Activated Date Inactivated Comments 05/05/2021 8:55 PM 05/14/2021 5:03 PM Care Teams Clay Shop Supervisor Relationship Specialty Start Date End Date Lu Ram, ELECTRICAL TECH-BUILDING ENGINEER [address] [place] [id number] PCP - General Nurse Practitioner 07/28/23 Neil Guy MD [address] [place] [address] Electric Dolly Operator/Oncologist Hematology and Oncology 03/14/21 Sha Aguirre MD [address] [place] [address] Hematology and Oncology 03/14/21 Pearl Tillman, ELECTRICAL TECH-IOS SOFTWARE ENGINEER [address] [facility] [address] [address] Advance Practice Nurse Oncology 03/14/21
--- OUTSIDE RECORDS SUMMARY | 2025-01-25 14:41 | XMS_ITS | Encounter Summary ---
Author Organization [facility] Address [address] [address] Care Team Providers Care [employer]iconductor Packages Tester Name Role Phone Neil Guy MD Unavailable [phone] Sha Aguirre MD Unavailable [phone] Alfredo Reno MD Unavailable [phone] Harish Little MD Unavailable [phone] Tu Ott MD Unavailable [phone] Ladi Medina RN Unavailable Unavailable Diamond HoffD Unavailable Unavaila Amalia Velásquez Unavailable Ria vaGosia Pham Unavailable Unavailable Pearl Tillman SUPERVISOR AIRPLANE FLIGHT ATTENDANT-AIRSET CASTER Unavailable + [phone] Carol Wilkins SUPERVISOR AIRPLANE FLIGHT ATTENDANT-ASSOCIATE LOAN OFFICER Unavailable [phone] Maura Gilmore RN Unavailable Unavailable Mary Alston DYE JIG OPERATOR Unavailable Unavailable Cindy QuigleyW Unavailable Unavailab Courtney Mobley RN Unavailable Unavailable Lu Ram SUPERVISOR AIRPLANE FLIGHT ATTENDANT-ASSOCIATE LOAN OFFICER Primary Care Provider Encounter Details Date Type Department Care Team (Late st Contact Info) Description 04/01/2021 Lab Requisition [facility] [address] [place] [address] Sha Aguirre MD [address] [facility] [place] [address] Illness, unspecified Social History Tobacco Use Types Packs/Day Years Used Date Smoking Tobacco: Never Smokeless Tobacco: Never Alcohol Use Standard Drinks/Week Comments Not Currently 0 (1 standard drink = 0.6 oz pur e alcohol) AUDIT-C Answer Date Recorded Q1: How often do you have a drink containing alc ohol? Never 03/12/2021 Q2: How many drinks containi ng alcohol do you have on a typical day when you are drinking? 1 or 2 03/12/2021 Q3: How often do you have six or more drinks on one occasion? Never 03/12/2021 Sex and Gender Information Value Date Recorded Sex Assigned at Not on file Legal Sex Male 9:03 AM CDT Gender Identity Not on file Sexual Orientation Not on file documented as of this encounter Functional Status * Is person deaf or have serious hearing difficulty? Answer Date of Assessment Author No 03/12/2021 8:30 PM Karo Nassar RN * Is person blind or have serious difficulty seeing? Answer Date of Assessment Author No 03/12/2021 8:30 PM PATROL SERGEANT Karo Cordova RN * Does person have serious difficulty walking/climbing stairs? Answer Date of Assessment Author No 03/12/2021 8:30 PM Karo Nassar RN * Does person have difficulty dressing/bathing? Answer Date of Assessment Author No 03/12/2021 8:30 PM Karo Nassar RN * Does person have difficulty doing errands alone? Answer Date of Assessment Author No 03/12/2021 8:30 PM Karo Nassar RN documented as of this encounter Mental Status * Does person have difficulty concentrating/remembering/making decisions? 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 There is an increased proportion of blasts and monocytes are left shifted including monoblasts and promonocytes. Myeloid elements show forms with hypogranular cytoplasm. Erythroid elements show forms with irregular nuclear contours and budding. Megakaryocytes include forms with widely nuclei. DECALCIFIED BONE MARROW CORE BIOPSY AND CLOT SECTION The core biopsy is adequate. Cellularity approaches 100% with left shifted myeloid maturation and monocytic differentiation. Erythroids are present in the background with no abnormal localization. Megakaryocytes are focally hypolobated and some show pawn ball nuclei. The clot section shows several marrow particles with similar morphologic features to the core. The provided immunohistochemical and special stains show the following: CD34 (core and clot): Less than 5% blasts Iron stain (core, clot, aspirate): Storage iron present without ring sideroblasts The provided immunohistochemical and special stains on the core show the following: Reticulin: Focal mild fibrosis P53: Positive in rare cells CD138: Highlights background plasma cells distributed singly and in perivascular clusters CD3: Highlights background T cells CD20: Highlights background B cells CD117: Highlights mast cells and immature myeloid and erythroid elements CD42b: Stains small, hypolobated megakaryocytes CD71: Highlights erythroids Myeloperoxidase: Highlights myeloid elements Per report, concurrent flow cytometric analysis ([facility] accession [id number]) shows left shifted myeloid maturation by flow cytometry. Increased blasts and monocytosis with immature forms noted on the aspirate smear. Per the diagnostic comment, Although only 0.1% blasts are detected by CD34 expression, increased blasts (combination of classic myeloblasts, monoblasts, and promonocytes) are detected by reviewing 1 marrow smear prepared from the submitted specimen, approximately 15%. Given the history of leukocytosis with monocytosis, anemia, and thrombocytopenia, the findings are most consistent with a myeloid neoplasm with monocytic differentiation. If there is absolute monocytosis that persists more than 3 months without known underlying etiology, chronic myelomonocytic leukemia-2 (CMML-2) should be considered. However, acute myeloid leukemia with monocytic differentiation cannot be excluded by this flow cytometry analysis. A blast count based on good quality bedside smears and correlation with histologic findings in the core biopsy, cytogenetic/genetic findings is required to establish a more specific diagnosis. Per report, chromosome analysis revealed a normal male karyotype: 46,XY[20] Per report, FISH analysis for BCR/ABL/ASS1 t(9;22) is NORMAL Per report, AML FISH analysis is NORMAL NEGATIVE for deletion 5 q., monosomy 5, deletion 7 q., monosomy 7, trisomy 8, t(8;21), deletion 20 q.,CBFB rearrangement and MLL rearrangement Per report, FISH analysis for PML/LAURA t(15;17) is NORMAL 04/10/2021 9:21 AM [facility] Clinical History Leukocytosis and anemia 04/10/2021 9:21 AM [facility] Materials Received Received are 58 slides (28 stained + 30 unstained) labeled [id number] /[id number] along with a copy of the outside pathology report. The materials originate from [facility], [address] [place] [address]. All original materials are returned to the referring institution, along with a copy of our final report. 04/10/2021 9:21 AM [facility] AP Comment As was noted in the in-house bone marrow biopsy from 03/13/2021 ([id number]) and discussed at tumor board on 03/21/2021, the findings are consistent with acute myeloid leukemia with monocytic differentiation and the day 14 marrow showed no increase in blasts. Without historical CBC data, it is difficult to tell if this was previously a chronic myelomonocytic leukemia that transformed into michael acute myeloid leukemia or if this is a de clinton acute myeloid leukemia with monocytic differentiation. The background of multilineage dysplasia raises the possibility of acute myeloid leukemia with myelodysplasia related changes, however, that diagnosis requires correlation with cytogenetic and molecular testing for final classification. 04/10/2021 9:21 AM [facility] Disclaimer The performance characteristics of all immunohistochemical and indirect immunofluorescence stains (if any) cited in this report were determined by the [facility]. Some of these tests were developed by our own laboratory and have not been cleared or approved by the US Food and Drug Administration. The FDA does not require this test to go through premarket FDA review. These tests are used for clinical purposes. They should not be regarded as investigational or for research. This laboratory is certified under the Clinical Laboratory Improvement Amendments (CLIA) as qualified to perform high complexity clinical laboratory testing. This case has been personally reviewed and interpreted by the attending (teaching) pathologist. 04/10/2021 9:21 AM [facility] Case Report Surgical Pathology Report Case: [id number] Authorizing Provider: Sha Aguirre MD Collected: 04/01/2021 10:03 AM Ordering Location: [facility] Received: 04/01/2021 10:03 AM Pathologist: Maddie Harrison Mai, DO Specimen: Slide Consultation 04/10/2021 9:21 AM [facility] Embedded Images 04/10/2021 9:21 AM [facility] Pathology/Cytolo gy SURGICAL PATHOLOGY CONSULTATION AND REPORT ON REFERRED SLIDES PREPARED ELSEWHERE / Unknown 04/01/2021 10:03 AM PATROL SERGEANT 04/01/2021 10:03 AM PATROL SERGEANT Sha Aguirre MD LAB - PATHOLOGY/CYTOLOGY ORD ERABLES Final Result Performing Organization Address City/State/[facility] Co de Phone Number [facility] [address] [phone] documented in this encounter Visit Diagnoses Diagnosis Illness, unspecified documented in this encounter Additional Health Concerns Infection Onset Date Last Indicated Resolved Time COVID-19 Under Investigation 05/05/2021 05/05/2021 05/06/2021 9:52 PM PATROL SERGEANT COVID-19 Under Investigation 08/08/2021 08/08/2021 08/08/2021 8:23 AM CDT COVID-19 Under Investigation 08/08/2021 08/08/2021 08/08/2021 11:27 AM CDT documented as of this encounter Care Teams Semiconductor Packages Tester Relationship Specialty Start Date End Date Lu Ram, SUPERVISOR AIRPLANE FLIGHT ATTENDANT-ASSOCIATE LOAN OFFICER [facility] [address] [place] [address] PCP - General Nurse Practitioner 07/28/23 Neil Guy MD [address] [place] [address] Machine Silk Screen Printer/Oncologist Hematology and Oncology 03/14/21 Sha Aguirre MD [address] [place] [address] Hematology and Oncology 03/14/21 Alfredo Reno MD [address] [place] [address] Hematology and Oncology 03/14/21 10/12/24 Harish Little MD [address] [place] [address] Hematology and Oncology 03/14/21 10/12/24 Tu Ott MD [address] [place] [address] Hematology and Oncology 03/14/21 10/12/24 Ladi Medina, RN 03/14/21 10/12/24 Diamond Hoff, PharmD 03/14/21 10/12/24 Amalia Solis 03/14/21 10/12/24 Gosia Stern 03/14/21 10/12/24 Pearl Tillman APRN-AIRSET CASTER [address] [facility] [address] [facility] [place] [address] Advance Practice Nurse Oncology 03/14/21 Carol Wilkins APRN-ASSOCIATE LOAN OFFICER [address] [place] [address] Family Medicine 03/14/21 10/12/24 Maura Gilmore, KANE Coordinator 03/14/21 10/12/24 Mary Alston CSW Locomotive Inspector 03/14/21 10/12/24 Cindy Quigley EXCHANGE TELLER Locomotive Inspector 03/14/21 10/12/24 Courtney Patel, RN Registered Nurse 03/14/21 10/12/24 documented as of this encounter
== END 2025-01-25 13:41 | disposition short-term general hospital (02) ==
PROVIDERS: Emergency Provider Registered Nurse
DX: R07.89 Other chest pain (principal); I10 Essential (primary) hypertension; E11.9 Type 2 diabetes mellitus without complications; Z79.85 Long-term (current) use of injectable non-insulin antidiabetic drugs; Z85.6 Personal history of leukemia
CPT/HCPCS: 82948; 93005; 99213; A9270; G0463